=== PATIENT | female | born 1995 | race American Indian/Alaskan Native ===

== ENCOUNTER 2018-06-25 19:39 | Outpatient (CLI) | payer OTHER | END 2018-06-26 14:59 | disposition home or self-care (01) | LOC: OBS/DEL 19:39 | DX: O76 Abnormality in fetal heart rate and rhythm complicating labor and delivery (principal); Z34.03 Encounter for supervision of normal first pregnancy, third trimester ==

== ENCOUNTER → 2018-07-01 | Outpatient (CLI) | payer OTHER | END | disposition home or self-care (01) | LOC: OBS/DEL 13:11 | DX: O26.893 Other specified pregnancy related conditions, third trimester (principal); M54.5 Low back pain; O23.43 Unspecified infection of urinary tract in pregnancy, third trimester; Z34.83 Encounter for supervision of other normal pregnancy, third trimester ==

== ENCOUNTER 2018-07-29 05:36 | Inpatient (IN) | payer OTHER ==
[~2018-07-29] VITALS: Ht 162.6 cm; Wt 90.7 kg
[2018-07-31] MEDS ORDERED: PRENATAL + DHA1 EAC1 PO (10:32)
[2018-07-31] MEDS ORDERED: FOLIC ACID0.8 MG PO (10:33)
== END 2018-07-31 11:35 | DRG 807 ==
LOC: LDR 05:36 → OB/GYN 05:36
PROVIDERS: ADMIT Obstetrics & Gynecology
PROC: 10E0XZZ Delivery of Products of Conception, External Approach (ICD-10-PCS; principal; 2018-07-29)
PROC: 0KQM0ZZ Repair Perineum Muscle, Open Approach (ICD-10-PCS; 2018-07-29)
PROC: 4A1HXCZ Monitoring of Products of Conception, Cardiac Rate, External Approach (ICD-10-PCS; 2018-07-29)
DX: O70.1 Second degree perineal laceration during delivery (principal); Z37.0 Single live birth; Z3A.38 38 weeks gestation of pregnancy